=== PATIENT | male | born 1970 | race Caucasian/White ===

== ENCOUNTER → 2019-11-11 14:35 | Outpatient (CLI) | payer OTHER, SELFPAY ==
--- NOTE | ~2019-11-11 | CT_ITS ---
EXAMINATION: CT abdomen pelvis wo con DATE: 11/11/2019 14:52 INDICATION: Left lower quadrant abdominal pain. Palpable lump. History of hernia repair. TECHNIQUE: Computed tomography (CT) of the abdomen and pelvis was performed without intravenous contr ast. Automated exposure control and iterative reconstruction technique were employed. Exam dose: 110 4.69 mGy-cm total exam DLP. COMPARISON: None. FINDINGS: The lung bases are clear. Normal heart size. No pericardial or pleural effusion. The liver, spleen, pancreas, adrenal glands and kidneys are unremarkable. The gallbladder is present. No bile duct or pancreatic duct dilatation. There is mild atherosclerotic calcification of the abdominal aorta and no evidence of aneurysm. No in traperitoneal or retroperitoneal or pelvic mass lesion or adenopathy or ascites. Normal appendix. No bowel obstruction or intraperitoneal free air. The urinary bladder is evacuated. Prostate gland and seminal vesicles are unremarkable. Surgical clips are noted in the anterolateral left pelvic area. Mild fat-containing right inguinal hernia. Diffuse idiopathic skeletal hyperostosis of the lower thoracic spine. Moderate degenerative disc disease at L4-5 with associated mild retrolisthesis. Moderately severe degenerative disease at L5-S1. IMPRESSION: No source for left lower quadrant abdominal pain is identified. Reviewed, dictated and finalized at [facility]. Reviewed, dictated and finalized at location [facility].
== END ==
PROVIDERS: PCP Family Medicine; Visit Provider Physician Assistant
DX: R10.32 Left lower quadrant pain (principal); R22.9 Localized swelling, mass and lump, unspecified
CPT/HCPCS: 74176

== ENCOUNTER 2020-06-01 01:08 | Outpatient (CLI) | payer OTHER, SELFPAY ==
[2020-06-01 19:25] LABS: SARS-CoV-2 RNA PCR Negative
== END 2020-06-01 01:09 | disposition home or self-care (01) ==
LOC: ANHCOVIDDT 01:08
PROVIDERS: PCP Family Medicine; Visit Provider Surgery Plastic and Reconstructive Surgery
DX: Z01.812 Encounter for preprocedural laboratory examination (principal); Z20.828 Contact with and (suspected) exposure to other viral communicable diseases
CPT/HCPCS: 87635; C9803; U0003

== ENCOUNTER 2020-06-01 07:58 | Outpatient (CLI) | payer OTHER, SELFPAY ==
--- NOTE | 2020-06-01 08:00 | ECG_ITS ---
Measurements Intervals [place] Rate: 75 P: 20 TX: 154 QRS: 16 QRSD: 100 T: 19 QT: 329 QTc: 370 Interpretive Statements SINUS RHYTHM DELAYED PRECORDIAL R/S TRANSITION BASELINE ARTIFACT- I, II, III, AVR, AVL BORDERLINE ECG Electronically Signed On 06-01-2020 8:11:52 CDT by Johnny Tamayo D.O.
== END 2020-06-01 07:59 | disposition home or self-care (01) ==
LOC: ANHSURGERY 08:00
PROVIDERS: PCP Family Medicine; Visit Provider Surgery Plastic and Reconstructive Surgery
DX: E78.5 Hyperlipidemia, unspecified (principal); R94.31 Abnormal electrocardiogram [ECG] [EKG]
CPT/HCPCS: 93005

== ENCOUNTER 2020-06-03 00:38 | Day surgery (SDC) | payer OTHER, SELFPAY ==
[2020-05-19 15:47] VITALS: BMI 31.1
[2020-06-03] MEDS: LACTATED RINGERS 1,000 ML 30 ML IV CONT ×2 (06:35→08:35)
[2020-06-03 06:41] VITALS: BP 124/91; PULSE 78; RESP 16; TEMP 36.3; O2SAT 97
--- NOTE | 2020-06-03 06:53 | WPDANESEPPF ---
Anes - Initial Pre Proc Eval Procedure: Operation Date: 06/03/20 07:30 Proposed Procedures p Right Open Carpal Tunnel Release, Right Cubital Tunnel Release - Tejas Simmons MD Date/Time: 06/03/20 06:53 Surgeon: Tejas Simmons MD Pre Op Diagnosis: Right Carpal and Tunnel Syndrome Patient Data Age: 50 Gender: M Height: 6 ft Weight: 105 kg Allergies Allergy/AdvReac Type Severity Reaction Status Date / Time Penicillins Allergy Unknown Swelling Verified 06/03/20 06:17 Home Medications Medication Instructions Recorded Confirmed Type aspirin 81 mg tablet,delayed 81 mg PO DAILY 07/28/19 06/03/20 History release ibuprofen 800 mg tablet 800 mg PO TID PRN #270 tablet 01/22/20 06/03/20 Rx atorvastatin 10 mg tablet 10 mg PO DAILY #90 tablet 03/08/20 06/03/20 Rx amitriptyline 25 mg PO DAILY 05/19/20 06/03/20 History docusate sodium 100 mg capsule 100 mg PO BID #14 cap 05/19/20 05/19/20 Rx hydrocodone 5 mg-acetaminophen 325 1 tablet PO Q6H PRN #15 tablet 05/19/20 05/19/20 Rx mg tablet ondansetron HCl 4 mg tablet 4 mg PO Q6H PRN #30 tablet 05/19/20 05/19/20 Rx pantoprazole 40 mg PO DAILY 05/19/20 06/03/20 History Patient hx anesthesia problems: none Family hx anesthesia problems: none PMFSH Past Medical History Medical History History of carpal tunnel syndrome Hyperlipemia Reflux gastritis Surgical History Surgical History H/O elbow surgery Hx of hernia repair Laparoscopic left inguinal hernia repair with mesh and Ventral periumbilical hernia repair with mesh Social History Social History Smoking packs per day: 1 Smoking cigarettes per day: 20.0 Years smoked: 15 Smoking pack-years: 15.00 Smoking status: Former smoker Tobacco type: cigarettes Smoking end date: 09/03/97 Additional smoking assessment comments: QUIT AT AGE 28 Alcohol intake: current Drinks per week: 7 Substance use: never 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 Questions were solicited and answers provided to the satisfaction of the patient/family/POA.
--- NOTE | 2020-06-03 07:07 | WPDHPUPDATE1 ---
History and Physical Update Update Date/Time: 06/03/20 07:07 History and Physical has been reviewed, including an updated exam of the patient. There are NO changes in the patient's condition. Risks, benefits, and alternatives have been discussed and questions answered. Patient agrees to proceed with procedure.
[2020-06-03] MEDS: CLINDAMYCIN 900 MG/NS 50 ML 900 MG/50 ML PIGGYBACK 50 MG IVPB (07:23)
[2020-06-03] MEDS: LIDO 1%/EPINEPHRINE 1:100,000 20 ML VIAL INFILTRATE (07:32)
--- NOTE | 2020-06-03 08:23 | PM.PROC ---
Procedure Note - Detailed Date of procedure: 06/03/20 Pre-op diagnosis: Right Carpal and Tunnel Syndrome Post-op diagnosis: same Procedure performed: 1. Right open carpal tunnel release 2. Right open cubital tunnel release Description of procedure: Patient was marked in the preoperative holding area with their verification. Taken to the operating room placed supine on operating room table. Anesthesia provided by anesthesiology and prepped and draped in standard sterile fashion. Surgical time-out was taken. 1% lidocaine and 0.25% Marcaine with epinephrine was used anesthetize locally. Esmarch was used to exsanguinate the arm and tourniquet inflated to 250 mmHg. Fifteen blade used to make an incision just ulnar to the palmaris longus tendon location. Dissection was continued down until the transverse carpal ligament was identified and this was completely released under direct visualization with no evidence of neurovascular or tendon injury. I closed with horizontal mattress 4-0 nylon. Fifteen blade used to make an incision over the cubital tunnel. I just proximal to the elbow identified the ulnar nerve. I followed this proximally and distally protecting any crossing nerves until there was complete release. There is no evidence of neurovascular tendon injury. I released the tourniquet. Verified hemostasis. Closed with 3-0 Monocryl followed by running subcuticular 4-0 Monocryl and tissue glue. He tolerated the procedure well. Xeroform fluffs and a lightly applied Hector were used for final dressing. Anesthesia: GLMA Surgeon: Tejas Simmons MD Estimated blood loss (mL): 5 Drains: No Packing: No Pathology: none sent Complications: No immediate complications Condition: stable Disposition: PACU
[2020-06-03 08:40] VITALS: BP 127/85; PULSE 94; RESP 16; TEMP 36; O2SAT 96
[2020-06-03 08:54] VITALS: BP 127/78; PULSE 90; RESP 20; O2SAT 93
[2020-06-03 09:10] VITALS: BP 128/90; PULSE 81; RESP 12; O2SAT 93
[2020-06-03 09:13] VITALS: BP 130/90; PULSE 77; RESP 18
[2020-06-03 09:43] VITALS: BP 132/90; PULSE 80; RESP 16
== END 2020-06-03 09:54 | disposition home or self-care (01) ==
PROVIDERS: PCP Family Medicine; Visit Provider Surgery Plastic and Reconstructive Surgery
PROC: (CPT 64721; principal; 2020-06-03 07:30)
DX: G56.01 Carpal tunnel syndrome, right upper limb (principal); G56.21 Lesion of ulnar nerve, right upper limb; E78.5 Hyperlipidemia, unspecified; K21.9 Gastro-esophageal reflux disease without esophagitis; Z79.82 Long term (current) use of aspirin; Z87.891 Personal history of nicotine dependence; E66.9 Obesity, unspecified; Z68.31 Body mass index [BMI] 31.0-31.9, adult
CPT/HCPCS: 64721; 64718; J1100; J2250; J2370; J2405; J2704; J3010; J7120

== ENCOUNTER 2020-07-07 06:52 | Outpatient (CLI) | payer OTHER, SELFPAY ==
[2020-07-07 07:52] LABS: Basophils Absolute Auto 0.1 K/mm3 (0.0-0.1); Basophils Percent Auto 1.4 % (0.2-1.2); Eosinophils Absolute Auto 0.2 K/mm3 (0-0.3); Eosinophils Percent Auto 2.8 % (0-4.4); Hematocrit 50.7 % (42.0-52.0); Hemoglobin 16.9 g/dL (14.0-18.0); Immature Granulocyte Absolute 0.02 K/mm3 (0.00-0.031); Immature Granulocyte Percent A 0.3 % (0-0.5); Lymphocytes Absolute Auto 2.23 K/mm3 (0.9-3.2); Lymphocytes Percent Auto 32.3 % (18.3-44.2); Mean Corpuscular HGB Conc 33.3 g/dl (32-36); Mean Corpuscular Hemoglobin 30.6 pg (26-34); Mean Corpuscular Volume 91.8 fl (80-100); Mean Platelet Volume 9.1 fl (7.4-10.4); Monocytes Absolute Auto 0.6 K/mm3 (0.1-0.6); Monocytes Percent Auto 8.7 % (2.6-8.5); Neutrophils Absolute Auto 3.8 K/mm3 (1.3-6.7); Neutrophils Percent Auto 54.5 % (45.5-73.1); Platelet Count Result 213 k/mm3 (150-375); Red Blood Count 5.52 M/mm3 (4.6-6.20); Red Cell Distribution Width 13.4 % (11.5-14.5); White Blood Count 6.9 K/mm3 (4.5-10.0)
[2020-07-07 07:58] LABS: Add Urine Microscopic? NO; Appearance Urine Clear (Clear); Bilirubin Urine Negative (Negative); Blood Urine Negative (Negative); Color Urine Yellow (Yellow); Glucose Urine UA Negative (Negative); Ketones Urine Negative (Negative); Leukocyte Esterase Ur Negative LEU/UL (NEGATIVE); Mucus Urine Rare /lpf; Nitrate Urine Negative (Negative); Protein Urine Negative (Negative); Specific Grav Ur 1.018 (1.001-1.035); Squamous Epithelial Cell Urine Rare /hpf (Few); Urobilinogen Urine Negative mg/dL (<2.0); WBC Urine 0-3 /hpf (0-3)
[2020-07-07 08:02] LABS: Alanine Aminotransferase 56 U/L (4-50); Albumin Level 4.4 g/dL (3.5-5.1); Alkaline Phosphatase 64 U/L (38-126); Anion Gap 8 mmol/L (8-16); Aspartate Amino Transferase 37 U/L (17-59); Bilirubin,Total 0.6 mg/dL (0.2-1.3); Blood Urea Nitrogen 20 mg/dL (9-20); Calcium 9.2 mg/dL (8.4-10.2); Carbon Dioxide 30 mmol/L (22-30); Chloride 101 mmol/L (98-107); Cholesterol 199 mg/dL (0-200); Estimated Glomerular Filt Rate > 60; Glucose 107 mg/dL (75-110); HDL Direct 43 mg/dL; Potassium 4.4 mmol/L (3.4-5.0); Sodium 139 mmol/L (137-145); Triglycerides 167 mg/dL (<150)
[2020-07-07 08:12] LABS: LDL Cholesterol Direct 121 mg/dL
[2020-07-07 08:29] LABS: Hemoglobin A1C 5.3 % (<5.7)
[2020-07-07 08:31] LABS: Prostate Specific Antigen 1.5 ng/mL (< OR = 4.0)
== END 2020-07-07 06:53 | disposition home or self-care (01) ==
PROVIDERS: PCP Family Medicine; Visit Provider Physician Assistant
DX: K21.9 Gastro-esophageal reflux disease without esophagitis (principal); R73.01 Impaired fasting glucose; E78.5 Hyperlipidemia, unspecified
CPT/HCPCS: 36415; 80053; 80061; 81003; 83036; 84153; 84443; 85025; G0103

== ENCOUNTER 2021-09-30 00:12 | Day surgery (SDC) | payer OTHER, SELFPAY ==
[2021-09-22 11:53] VITALS: BMI 29.9
--- NOTE | 2021-09-29 13:18 | PM.HPGS ---
History of Present Illness History of Present Illness Consent: Risks, benefits, and alternatives have been discussed and questions answered. Patient agrees to proceed with procedure. Chief complaint: hx of colon polyps Narrative: Frantz Cheek is a 51 year old male for colon cancer screening. he had a polyp removed about 5 years ago Review of Systems Review of Systems: All systems reviewed & are unremarkable except as noted in HPI and below PMFSH Past Medical History Medical History History of carpal tunnel syndrome Hyperlipemia Reflux gastritis Surgical History Surgical History H/O elbow surgery Hx of hernia repair Laparoscopic left inguinal hernia repair with mesh and Ventral periumbilical hernia repair with mesh Social History Social History Smoking packs per day: 1 Smoking cigarettes per day: 20.0 Years smoked: 15 Smoking pack-years: 15.00 Smoking status: Former smoker Tobacco type: cigarettes Smoking end date: 09/03/97 Additional smoking assessment comments: QUIT AT AGE 28 Alcohol intake: current Drinks per week: 7 Alcohol use details: occasion Substance use: never Substance use type: does not use Living arrangements: with family 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[employer] Spiritual care concerns: No Meds Home Medications and Allergies Home Medications Medication Instructions Recorded Confirmed Type aspirin 81 mg tablet,delayed 81 mg PO DAILY 07/28/19 09/22/21 History release ibuprofen 800 mg tablet 800 mg PO TID PRN #270 tablet 01/22/20 09/22/21 Rx docusate sodium 100 mg capsule 100 mg PO BID #14 cap 05/19/20 09/22/21 Rx amitriptyline 25 mg tablet See Rx Instructions .ROUTE 02/21/21 09/22/21 Rx .COMPLEX #90 tablet pantoprazole 40 mg tablet,delayed 40 mg PO DAILY #90 tablet 06/02/21 09/22/21 Rx release atorvastatin 10 mg tablet See Rx Instructions .ROUTE 08/30/21 09/22/21 Rx .COMPLEX #90 tablet clobetasol 0.05 % topical cream 1 applic TOPICAL DAILY #45 g 08/30/21 09/22/21 Rx Allergies Allergy/AdvReac Type Severity Reaction Status Date / Time Penicillins Allergy Unknown Swelling Verified 09/30/21 07:34 Exam Resp: Auscultation: clear to auscultation bilaterally Cardio: Rate: regular rate Rhythm: regular rhythm GI: GI Palp: Yes Soft to palpation and No Tenderness to palpation present (GI) Assessment and Plan Assessment and plan (1) Colon cancer screening: Code(s): Z12.11 - Encounter for screening for malignant neoplasm of colon Status: Acute Assessment and Plan: Colonoscopy with possible biopsy or polypectomy or cautery or injection of substances.
[2021-09-30 07:35] VITALS: BP 163/103; PULSE 83; RESP 16; TEMP 36.2; O2SAT 97; BMI 31.6
[2021-09-30] MEDS: LACTATED RINGERS 1,000 ML 150 ML IV CONT (07:37)
--- NOTE | 2021-09-30 07:51 | WPDANESEPPF ---
Anes - Initial Pre Proc Eval Procedure: Operation Date: 09/30/21 08:30 Proposed Procedures p Screening Colonoscopy - Wili Louis MD Date/Time: 09/30/21 07:51 Surgeon: Wili Louis MD Pre Op Diagnosis: hx of colon polyps Patient Data Age: 51 Gender: M Height: 1.83 m Weight: 105.6 kg Last Vital Signs Temp 36.2 C L 09/30/21 07:35 Pulse 83 09/30/21 07:35 Resp 16 09/30/21 07:35 BP 163/103 H 09/30/21 07:35 Pulse Ox 97 09/30/21 07:35 Allergies Allergy/AdvReac Type Severity Reaction Status Date / Time Penicillins Allergy Unknown Swelling Verified 09/30/21 07:34 Home Medications Medication Instructions Recorded Confirmed Type aspirin 81 mg tablet,delayed 81 mg PO DAILY 07/28/19 09/30/21 History release ibuprofen 800 mg tablet 800 mg PO TID PRN #270 tablet 01/22/20 09/30/21 Rx docusate sodium 100 mg capsule 100 mg PO BID #14 cap 05/19/20 09/30/21 Rx amitriptyline 25 mg tablet See Rx Instructions .ROUTE 02/21/21 09/30/21 Rx .COMPLEX #90 tablet pantoprazole 40 mg tablet,delayed 40 mg PO DAILY #90 tablet 06/02/21 09/30/21 Rx release atorvastatin 10 mg tablet See Rx Instructions .ROUTE 08/30/21 09/30/21 Rx .COMPLEX #90 tablet clobetasol 0.05 % topical cream 1 applic TOPICAL DAILY #45 g 08/30/21 09/30/21 Rx Patient hx anesthesia problems: none Family hx anesthesia problems: none Results Review: All pre-operative results and documents have been reviewed as part of the pre-operative evaluation. [facility] Past Medical History Medical History History of carpal tunnel syndrome Hyperlipemia Reflux gastritis Surgical History Surgical History H/O elbow surgery Hx of hernia repair Laparoscopic left inguinal hernia repair with mesh and Ventral periumbilical hernia repair with mesh Social History Social History Smoking packs per day: 1 Smoking cigarettes per day: 20.0 Years smoked: 15 Smoking pack-years: 15.00 Smoking status: Former smoker Tobacco type: cigarettes Smoking end date: 09/03/97 Additional smoking assessment comments: QUIT AT AGE 28 Alcohol intake: current Drinks per week: 7 Alcohol use details: occasion Substance use: never Substance use type: does not use Living arrangements: with family 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 Informed Consent: The patient's anesthetic plan and its attendant risks and benefits were discussed with the patient/family/POA. Questions were solicited and answers provided to the satisfaction of the patient/family/POA.
[2021-09-30 08:29] VITALS: BP 114/70; PULSE 85; RESP 18; O2SAT 99
[2021-09-30 08:39] VITALS: BP 114/70; PULSE 77; RESP 13; O2SAT 98
[2021-09-30 08:48] VITALS: BP 134/93; PULSE 75; RESP 17; O2SAT 98
== END 2021-09-30 08:56 | disposition home or self-care (01) ==
PROVIDERS: PCP Family Medicine; Visit Provider Internal Medicine Gastroenterology
PROC: 0DJD8ZZ Inspection of Lower Intestinal Tract, Via Natural or Artificial Opening Endoscopic (ICD-10-PCS; CPT 45378; principal; 2021-09-30 08:30)
DX: Z12.11 Encounter for screening for malignant neoplasm of colon (principal); Z86.010 Personal history of colon polyps; E78.5 Hyperlipidemia, unspecified; K21.9 Gastro-esophageal reflux disease without esophagitis; Z79.82 Long term (current) use of aspirin; Z87.891 Personal history of nicotine dependence; E66.9 Obesity, unspecified; Z68.31 Body mass index [BMI] 31.0-31.9, adult
CPT/HCPCS: 45378; J2704; J7120

== ENCOUNTER → 2021-11-22 12:26 | Outpatient (CLI) | payer OTHER, SELFPAY ==
--- NOTE | ~2021-11-22 | US_ITS ---
EXAMINATION: US soft tissue chest INDICATION: Localized swelling, mass, and lump of the trunk TECHNIQUE: Targeted high-resolution ultrasound is performed in the area of clinical interest. COMPARISON: None available FINDINGS: There is a 2.3 x 0.8 cm oval mass in the chest wall which is isoechoic to fat corresponding to the area of palpable concern. No internal vascularity is identified. IMPRESSION: 1. Small lipoma corresponding to the area of palpable concern. Reviewed, dictated and finalized at location [facility].
== END ==
PROVIDERS: PCP Family Medicine; Visit Provider Physician Assistant
DX: R22.2 Localized swelling, mass and lump, trunk (principal)
CPT/HCPCS: 76604

== ENCOUNTER 2022-01-09 08:38 | Outpatient (CLI) | payer OTHER, SELFPAY ==
--- NOTE | ~2022-01-09 | XR_ITS ---
XR chest 2V DATE: 01/09/2022 08:55 INDICATION: Chest pain TECHNIQUE: PA and lateral views COMPARISON: 09/04/2018 2 view chest FINDINGS: Normal heart size. No hilar or mediastinal enlargement. No pulmonary infiltrate or consolid ation, pleural effusion or pulmonary vascular congestion or pneumothorax. Degenerative spurring of the thoracic spine. IMPRESSION: No active cardiopulmonary disease Reviewed, dictated and finalized at location [facility].
== END 2022-01-09 08:39 | disposition home or self-care (01) ==
PROVIDERS: PCP Family Medicine; Visit Provider Physician Assistant
DX: R07.89 Other chest pain (principal); R06.00 Dyspnea, unspecified
CPT/HCPCS: 71046

== ENCOUNTER 2022-04-26 01:32 | Day surgery (SDC) | payer OTHER, SELFPAY ==
[2022-04-24 14:54] VITALS: BMI 31.9
[2022-04-26] VITALS (9 sets, daily range): BP systolic 115–139; BP diastolic 85–97; PULSE 69–81; RESP 11–20; TEMP 36.2–36.6; O2SAT 92–98; BMI 32.1
[2022-04-26 07:28] LABS: Basophils Absolute Auto 0.1 K/mm3 (0.0-0.1); Basophils Percent Auto 1.6 % (0.2-1.2); Eosinophils Absolute Auto 0.2 K/mm3 (0-0.3); Eosinophils Percent Auto 2.6 % (0-4.4); Hematocrit 46.9 % (42.0-52.0); Hemoglobin 15.9 g/dL (14.0-18.0); Immature Granulocyte Absolute 0.02 K/mm3 (0.00-0.031); Immature Granulocyte Percent A 0.3 % (0-0.5); Lymphocytes Absolute Auto 1.97 K/mm3 (0.9-3.2); Lymphocytes Percent Auto 31.5 % (18.3-44.2); Mean Corpuscular HGB Conc 33.9 g/dl (32-36); Mean Corpuscular Hemoglobin 30.5 pg (26-34); Mean Corpuscular Volume 89.8 fl (80-100); Mean Platelet Volume 9.1 fl (7.4-10.4); Monocytes Absolute Auto 0.6 K/mm3 (0.1-0.6); Monocytes Percent Auto 9.9 % (2.6-8.5); Neutrophils Absolute Auto 3.4 K/mm3 (1.3-6.7); Neutrophils Percent Auto 54.1 % (45.5-73.1); Platelet Count Result 199 k/mm3 (150-375); Red Blood Count 5.22 M/mm3 (4.6-6.20); Red Cell Distribution Width 14.6 % (11.5-14.5); White Blood Count 6.3 K/mm3 (4.5-10.0)
[2022-04-26] MEDS: SODIUM CHLORIDE 0.9% IV 500 ML 100 ML IV CONT (07:30)
[2022-04-26 07:40] LABS: Anion Gap 10 mmol/L (8-16); Blood Urea Nitrogen 19 mg/dL (9-20); Calcium 8.7 mg/dL (8.4-10.2); Carbon Dioxide 24 mmol/L (22-30); Chloride 105 mmol/L (98-107); Estimated CRCL calculation 86 ml/min; Estimated Glomerular Filt Rate > 60; Glucose 114 mg/dL (65-110); Potassium 4.1 mmol/L (3.4-5.0); Sodium 139 mmol/L (137-145)
--- NOTE | 2022-04-26 08:24 | WPDMODSED ---
Moderate Sedation Note-Pt Data Patient Data Diagnosis: Exertional dyspnea intermittent nonexertional chest pain abnormal nuclear stress test Present Complaint: exertional dyspnea Procedure to be performed/Plan: left heart catheterization Allergies Allergy/AdvReac Type Severity Reaction Status Date / Time Penicillins Allergy Unknown Swelling Verified 04/26/22 07:18 Home Medications Medication Instructions Recorded Confirmed Type aspirin 81 mg tablet,delayed 81 mg PO DAILY 07/28/19 04/26/22 History release (Adult Aspirin Regimen) amitriptyline 25 mg tablet See Rx Instructions .Route 11/30/21 04/26/22 Rx .COMPLEX #90 tabs amlodipine 2.5 mg tablet 2.5 mg PO DAILY #90 tabs 01/19/22 04/26/22 Rx atorvastatin 10 mg tablet See Rx Instructions .Route 02/27/22 04/26/22 Rx .COMPLEX #90 tabs pantoprazole 40 mg tablet,delayed See Rx Instructions .Route 04/04/22 04/26/22 Rx release .COMPLEX #90 tabs acetaminophen 500 mg tablet 1,000 mg PO TID PRN Pain 04/24/22 04/26/22 History (Acetaminophen Extra Strength) clobetasol 0.05 % topical cream 1 applic topical BID 04/24/22 04/26/22 History ibuprofen 800 mg tablet 800 mg PO TID PRN Pain 04/24/22 04/26/22 History Current Medications: Active Medications Sodium Chloride (Normal Saline Iv) 500 mls @ 100 mls/hr IV CONT .Q5H LUIS Last Admin: 04/26/22 07:30 Dose: 100 mls/hr Sedation/Anesthesia: No previous sedation/anesthesia problems (including family history). [facility] Past Medical History Medical History History of carpal tunnel syndrome Hyperlipemia Reflux gastritis Surgical History Surgical History H/O elbow surgery History of carpal tunnel release Hx of hernia repair Laparoscopic left inguinal hernia repair with mesh and Ventral periumbilical hernia repair with mesh Social History Social History Smoking packs per day: 1 Smoking cigarettes per day: 20.0 Years smoked: 15 Smoking pack-years: 15.00 Smoking status: Former smoker Tobacco type: cigarettes Smoking end date: 09/03/97 Additional smoking assessment comments: QUIT AT AGE 28 Alcohol intake: current Drinks per week: 7 Alcohol use details: occasion Substance use: never Substance use type: does not use Living arrangements: with family 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: No Mod Sed Physical Exam Physical Exam Pre Procedural Exam: Normal: Appearance, Neck, Throat, Airway, Lungs, Heart Size, Heart Rate, Heart Rhythm, Neuro Exam and Extremities Hours since solid foods: 12 Hours since liquid intake: 12 Mallampati Classification: class II Internal Medicine - PN: Obj Da Vital Signs Vital Signs: Vital Signs - 24 hr 04/26/22 07:26 Temperature 36.2 C L Pulse Rate 80 Respiratory Rate 20 Blood Pressure 135/93 H Pulse Oximetry 96 Oxygen Delivery Room Air Meds/Results Medications: Active Medications Generic Name Dose Route Start Last Admin Trade Name Freq PRN Reason Stop Dose Admin Sodium Chloride 500 mls @ 100 mls/hr 04/26/22 07:00 04/26/22 07:30 Normal Saline Iv IV CONT 100 mls/hr .Q5H LUIS Administration Labs CBC & Chem 7: 04/26/22 07:16 04/26/22 07:16 Labs: Laboratory Results - last 24 hr 04/26/22 04/26/22 07:16 07:16 WBC 6.3 RBC 5.22 Hgb 15.9 Hct 46.9 MCV 89.8 MCH 30.5 MCHC 33.9 RDW 14.6 H Plt Count 199 MPV 9.1 Immature Gran % (Auto) 0.3 Neut % (Auto) 54.1 Lymph % (Auto) 31.5 [place] % (Auto) 9.9 H Eos % (Auto) 2.6 Baso % (Auto) 1.6 H Lymph # (Auto) 1.97 [place] # (Auto) 0.6 Eos # (Auto) 0.2 Baso # (Auto) 0.1 Abs Immat Gran (auto) 0.02 Absolute Neuts (auto) 3.4 Absolute Nucleated RBC 0.0 Nucleated RBC % 0.0 So
--- NOTE | 2022-04-26 08:53 | P.PCNCC_ITS ---
Cardiac Cath Procedure Note Date of procedure:: 04/26/22 Performing physician:: Stan Khan MD Indication:: exertional dyspnea nonexertional chest pain abnormal nuclear stress test Brief clinical history:: this is a 52-year-old man without previous cardiac history. He has been experiencing exertional shortness of breath as well as intermittent episodes of nonexertional chest pain. A nuclear stress test was done which was interpreted as a small area of apical ischemia. This has prompted recommendation for an angiogram. Procedure Procedure performed:: left ventriculogram coronary angiogram Angio-Seal to right femoral artery Sedation/Medication given:: fentanyl 50 mg Versed 2 mg case start time 8:34 a.m. case end time 8:47 a.m. Access site:: right femoral artery Estimated blood loss:: 20 cc Procedure note:: patient was brought to the cardiac catheterization lab in the postabsorptive state where the right femoral triangle was prepared and draped in the normal fashion. Anesthesia was provided with 1% lidocaine infiltrated locally. Using the modified Seldinger technique a 5 [place] sheath was placed into the right common femoral artery after this left heart catheterization was carried out. A 5 [place] angled pigtail catheter was used to document left-sided hemodynamics and to inject LV g in the DOMINGUEZ projection. After this standard 5 [place] FL4 catheter was used to engage inject the left coronary artery in multiple projections and then a JR4 catheter was used to inject the right coronary artery in orthogonal projections. After this the cineangiograms were reviewed and the case was terminated. A angiogram was done of the femoral artery through the sheath after which a 6 [place] Angio-Seal device was deployed with a good hemostatic result. There were no procedural complications and the patient tolerated procedure well. There was no sign of groin hematoma upon leaving the manager cardiac cath. Findings:: Hemodynamics: Central aortic pressure is 126/80 left ventricle 126/0 end- diastolic pressure 15 there is no systolic gradient on pullback across the aortic valve. Left ventricle: The LV is normal size all segments contract appropriately the global ejection fraction is visually estimated to be 60-65%. The left main coronary artery is widely patent the left anterior descending is a medium caliber artery extending down to and just around the apex the LAD is angiographically free of disease. The circumflex is a moderate caliber artery giving rise to only 1 large OM branch. The circumflex is angiographically free of disease. The right coronary artery is large in caliber and dominant to the posterior circulation the right coronary artery is smooth and angiographically normal. Conclusion:: 1. Right coronary dominant circulation with no angiographic evidence of coronary artery disease 2. nicely preserved left ventricular systolic contractility 3. based on these findings the patient's symptoms are likely to be noncardiac and his nuclear stress test is a false positive. Stan Khan MD FACC
--- NOTE | 2022-04-26 09:33 | SUR.PHASEII ---
patient's Criss called at 0919 and was notified of patient's procedure. Dr. Khan reports his cardiac cath was normal and he does not need to follow up with patient unless he has problems with his right femoral artery access site. Patient's informed of his bedrest and anticipated discharge time. She verbalized understanding and will be here to go over discharge instructions and to drive patient home.
--- NOTE | 2022-04-26 13:28 | SUR.PHASEII ---
1220 patient was escorted out of [facility] to private vehicle via wheelchair in stable condition with no complaints. Discharge instructions were reviewed with patient and his spouse. They had no further questions or concerns regarding their discharge instructions.
== END 2022-04-26 12:20 | disposition home or self-care (01) ==
PROVIDERS: PCP Family Medicine; Visit Provider Specialist
PROC: 4A023N7 Measurement of Cardiac Sampling and Pressure, Left Heart, Percutaneous Approach (ICD-10-PCS; CPT 93452; principal; 2022-04-26 08:30)
DX: R94.39 Abnormal result of other cardiovascular function study (principal); R07.9 Chest pain, unspecified; R06.02 Shortness of breath; K21.9 Gastro-esophageal reflux disease without esophagitis; E78.00 Pure hypercholesterolemia, unspecified
CPT/HCPCS: 36415; 80048; 85025; 93458; C1760; C1887; C1894; G0269; J1644; J2250; J3010; J7040

== ENCOUNTER → 2022-07-22 08:08 | Outpatient (CLI) | payer OTHER, SELFPAY ==
--- NOTE | ~2022-07-22 | MR_ITS ---
EXAMINATION: MR lumbar spine wo con DATE: 07/22/2022 08:55 INDICATION: Low back pain. Right leg pain. TECHNIQUE: Magnetic resonance imaging (MRI) of the lumbar spine was performed without intravenous con trast. Sequences included sagittal T2-weighted FSE, sagittal T2-weighted FS FSE, sagittal T1-weighted FSE, and axial T2-weighted FSE. COMPARISON: Lumbar spine MRI 05/21/2018 FINDINGS: There is 3 mm retrolisthesis of L4 on L5 and L5 on S1. There is mild chronic anterior wedgi ng of T12 and L1 vertebral bodies. There is mildly decreased disc height at L3-L4 and moderately decr eased disc height at L4-L5 and L5-S1. The distal spinal cord signal intensity is normal. The conus me dullaris is at T12-L1. The following disc levels are specifically discussed: L1-L2: There is a left foraminal protrusion. There is moderate right and severe left facet joint oste oarthritis. There is mild left neural foraminal stenosis. There is no central canal stenosis. L2-L3: The disc is mildly bulging. There is severe bilateral facet joint osteoarthritis. There is mil d bilateral neural foraminal stenosis. There is no central canal stenosis. L3-L4: The disc is bulging. There is moderate bilateral facet joint osteoarthritis. There is moderate bilateral neural foraminal stenosis. There is mild central canal stenosis. L4-L5: The disc is bulging and has an annular fissure. There is severe right and moderate left facet joint osteoarthritis. There is moderate bilateral neural foraminal stenosis. There is mild central ca nal stenosis. L5-S1: The disc is bulging and has an annular fissure. There is moderate right and severe left facet joint osteoarthritis. There is mild right and moderate left neural foraminal stenosis. There is mild central canal stenosis. IMPRESSION: 1. Moderate lumbar spondylosis, stable from 05/21/2018. Reviewed, dictated and finalized at location A. [employer]
== END ==
PROVIDERS: PCP Family Medicine; Visit Provider Nurse Practitioner Family
DX: M47.896 Other spondylosis, lumbar region (principal)
CPT/HCPCS: 72148

== ENCOUNTER 2023-03-29 17:11 | Outpatient (CLI) | payer OTHER, SELFPAY ==
[2023-03-29 17:29] LABS: Hematocrit 48.4 % (42.0-52.0); Hemoglobin 16.1 g/dL (14.0-18.0); Mean Corpuscular HGB Conc 33.3 g/dl (32-36); Mean Corpuscular Hemoglobin 30.6 pg (26-34); Mean Corpuscular Volume 91.8 fl (80-100); Mean Platelet Volume 9.2 fl (7.4-10.4); Platelet Count Result 210 k/mm3 (150-375); Red Blood Count 5.27 M/mm3 (4.6-6.20); Red Cell Distribution Width 14.1 % (11.5-14.5); White Blood Count 7.3 K/mm3 (4.5-10.0)
[2023-03-29 17:43] LABS: Alanine Aminotransferase 57 U/L (6-50); Albumin Level 4.3 g/dL (3.5-5.1); Alkaline Phosphatase 43 U/L (38-126); Anion Gap 9 mmol/L (8-16); Aspartate Amino Transferase 38 U/L (17-59); Bilirubin,Total 0.5 mg/dL (0.2-1.3); Blood Urea Nitrogen 15 mg/dL (9-20); Calcium 9.2 mg/dL (8.4-10.2); Carbon Dioxide 26 mmol/L (22-30); Chloride 104 mmol/L (98-107); Estimated Glomerular Filt Rate > 60; Glucose 114 mg/dL (65-110); Potassium 4.2 mmol/L (3.4-5.0); Sodium 139 mmol/L (137-145)
== END 2023-03-29 17:12 | disposition home or self-care (01) ==
LOC: ANHLAB 17:12
PROVIDERS: PCP Family Medicine; Visit Provider Family Medicine
DX: R60.9 Edema, unspecified (principal); I10 Essential (primary) hypertension
CPT/HCPCS: 36415; 80053; 84443; 85027

== ENCOUNTER 2024-08-25 08:13 | Outpatient (CLI) | payer OTHER, SELFPAY ==
--- NOTE | ~2024-08-25 | MR_ITS ---
EXAMINATION: MR lumbar spine wo con DATE: 08/25/2024 08:33 INDICATION: Lumbar radiculopathy. TECHNIQUE: Magnetic resonance imaging (MRI) of the lumbar spine was performed without intravenous con trast. Sequences included sagittal T2-weighted FSE, sagittal T2-weighted FS FSE, sagittal T1-weighted FSE, and axial T2-weighted FSE. COMPARISON: Lumbar spine MRI 07/22/2022 FINDINGS: There is 4 mm retrolisthesis of L4 on L5. There is mild chronic anterior wedging of T12 and L1 vertebral bodies. There is mildly decreased disc height at L3-L4 and severely decreased disc heig ht at L4-L5 and L5-S1. The distal spinal cord signal intensity is normal. The conus medullaris is at T12-L1. Epidural lipomatosis is noted. The following disc levels are specifically discussed: L1-L2: The disc does not extend beyond the endplate margin. There is mild right and moderate left fac et joint osteoarthritis. There is no neural foraminal stenosis. There is no central canal stenosis. L2-L3: The disc is mildly bulging. There is severe bilateral facet joint osteoarthritis. There is mil d bilateral neural foraminal stenosis. There is no central canal stenosis. L3-L4: The disc is bulging. There is severe bilateral facet joint osteoarthritis. There is mild bilat eral neural foraminal stenosis. There is mild central canal stenosis. L4-L5: The disc is bulging. There is severe bilateral facet joint osteoarthritis. There is severe rig ht and moderate left neural foraminal stenosis. There is mild central canal stenosis. L5-S1: The disc is bulging and has an annular fissure. There is moderate right and severe left facet joint osteoarthritis. There is mild right and moderate left neural foraminal stenosis. There is mild central canal stenosis. IMPRESSION: 1. Severe lower lumbar spondylosis, mildly worsened from 07/22/2022. Reviewed, dictated and finalized at location [] [employer]CIAL [employer]
== END 2024-08-25 08:14 | disposition home or self-care (01) ==
LOC: MICIMG 08:13
PROVIDERS: PCP Family Medicine; Visit Provider Nurse Practitioner Family
DX: M43.06 Spondylolysis, lumbar region (principal)
CPT/HCPCS: 72148